=== PATIENT | male | born 1980 | race Caucasian/White ===

== ENCOUNTER 2016-11-11 14:33 | Emergency (ER) | payer OTHER, MEDICAID ==
[2016-11-11] MEDS ORDERED: ACETAMINOPHEN 325 MG TABLET PO ONE (14:57)
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
[2016-11-11 17:01] VITALS: BP 135/88
== END 2016-11-11 17:02 | disposition home or self-care (01) ==
LOC: ER 14:33
DX: S16.1XXA Strain of muscle, fascia and tendon at neck level, initial encounter (principal); M54.2 Cervicalgia; V49.50XA Passenger injured in collision with unspecified motor vehicles in traffic accident, initial encounter; F17.210 Nicotine dependence, cigarettes, uncomplicated
CPT/HCPCS: 72040; 99283

== ENCOUNTER 2016-11-30 01:50 | Emergency (ER) | payer MEDICAID, OTHER ==
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
[2016-11-30 07:58] VITALS: BP 126/79
== END 2016-11-30 08:00 | disposition home or self-care (01) ==
LOC: ER 01:50
DX: L01.00 Impetigo, unspecified (principal); R21 Rash and other nonspecific skin eruption
CPT/HCPCS: 99281

== ENCOUNTER 2017-01-21 17:20 | Emergency (ER) | payer MEDICAID ==
[2017-01-21] MEDS ORDERED: FAMOTIDINE 20 MG TABLET PO ONE (19:25)
[2017-01-21] MEDS ORDERED: PREDNISONE 20 MG TABLET PO ONE (19:25)
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
[2017-01-21 20:13] VITALS: BP 123/77
== END 2017-01-21 20:13 ==
LOC: ER 17:20
DX: R21 Rash and other nonspecific skin eruption (principal); M79.601 Pain in right arm; F17.210 Nicotine dependence, cigarettes, uncomplicated
CPT/HCPCS: 99282; J3490; J7512

== ENCOUNTER 2017-01-27 09:27 | Emergency (ER) | payer MEDICAID ==
[2017-01-27 09:37] VITALS: BP 141/87
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
== END 2017-01-27 10:09 | disposition home or self-care (01) ==
LOC: ER 09:27
DX: L23.7 Allergic contact dermatitis due to plants, except food (principal); T38.0X6A Underdosing of glucocorticoids and synthetic analogues, initial encounter; Z91.120 Patient's intentional underdosing of medication regimen due to financial hardship; Z91.14 Patient's other noncompliance with medication regimen; F17.210 Nicotine dependence, cigarettes, uncomplicated; Z71.6 Tobacco abuse counseling
CPT/HCPCS: 99282

== ENCOUNTER 2017-03-16 19:44 | Emergency (ER) | payer MEDICAID ==
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
[2017-03-16] MEDS ORDERED: CEPHALEXIN 500 MG CAPSULE PO ONE (22:15)
[2017-03-16 22:56] VITALS: BP 117/72
== END 2017-03-16 22:55 | disposition home or self-care (01) ==
LOC: ER 19:44
DX: S80.862A Insect bite (nonvenomous), left lower leg, initial encounter (principal); S80.861A Insect bite (nonvenomous), right lower leg, initial encounter; L08.9 Local infection of the skin and subcutaneous tissue, unspecified; W57.XXXA Bitten or stung by nonvenomous insect and other nonvenomous arthropods, initial encounter
CPT/HCPCS: 99282

== ENCOUNTER 2017-04-04 16:58 | Emergency (ER) | payer MEDICAID ==
[2017-04-04 17:02] VITALS: BP 142/81
[2017-04-04] MEDS ORDERED: CLINDAMYCIN HCL 150 MG CAPSULE PO ONE (17:50)
[2017-04-04] MEDS ORDERED: PREDNISONE 20 MG TABLET PO ONE (17:50)
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
== END 2017-04-04 18:24 | disposition home or self-care (01) ==
LOC: ER 16:58
DX: L03.115 Cellulitis of right lower limb (principal); R21 Rash and other nonspecific skin eruption; R03.0 Elevated blood-pressure reading, without diagnosis of hypertension; F17.200 Nicotine dependence, unspecified, uncomplicated
CPT/HCPCS: 99282; J3490; J7512

== ENCOUNTER 2017-05-18 14:35 | Emergency (ER) | payer MEDICAID ==
[2017-05-18 14:39] VITALS: BP 138/78
[2017-05-18] MEDS ORDERED: DEXAMETHASONE SOD PHOS INJ 10 MG/1 ML VIAL IM ONE (15:30)
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
== END 2017-05-18 16:01 | disposition home or self-care (01) ==
LOC: ER 14:35
DX: L25.9 Unspecified contact dermatitis, unspecified cause (principal)
CPT/HCPCS: 99283; 96372; J1100

== ENCOUNTER 2017-06-25 12:41 | Emergency (ER) | payer MEDICAID ==
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
[2017-06-25] MEDS ORDERED: IBUPROFEN 800 MG TABLET PO ONE (13:57)
[2017-06-25 14:12] VITALS: BP 138/70
== END 2017-06-25 14:39 | disposition home or self-care (01) ==
LOC: ER 12:41
DX: S61.212A Laceration without foreign body of right middle finger without damage to nail, initial encounter (principal); W45.8XXA Other foreign body or object entering through skin, initial encounter; F17.200 Nicotine dependence, unspecified, uncomplicated
CPT/HCPCS: 99282; J3490

== ENCOUNTER 2018-04-15 20:45 | Emergency (ER) | payer MEDICAID ==
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
[2018-04-15] MEDS ORDERED: CEPHALEXIN 500 MG CAPSULE PO ONE (23:18)
[2018-04-15] MEDS ORDERED: FAMOTIDINE 20 MG TABLET PO ONE (23:19)
[2018-04-15] MEDS ORDERED: PREDNISONE 20 MG TABLET PO ONE (23:19)
[2018-04-15] MEDS ORDERED: CLINDAMYCIN HCL 150 MG CAPSULE PO ONE (23:23)
[2018-04-15 23:29] VITALS: BP 137/86
== END 2018-04-15 23:34 | disposition home or self-care (01) ==
LOC: ER 20:45
DX: L03.221 Cellulitis of neck (principal); T78.40XA Allergy, unspecified, initial encounter; X58.XXXA Exposure to other specified factors, initial encounter; R21 Rash and other nonspecific skin eruption; L29.9 Pruritus, unspecified; Z87.891 Personal history of nicotine dependence; Z86.14 Personal history of Methicillin resistant Staphylococcus aureus infection
CPT/HCPCS: 99282; J3490 ×2; J7512

== ENCOUNTER 2018-04-26 20:27 | Emergency (ER) | payer MEDICAID ==
[2018-04-26] MEDS ORDERED: NYSTATIN/TRIAMCIN CREAM 15 GM TP ONE (23:25)
--- NOTE | 2018-04-26 23:28 | ER Document Report ---
ED Skin Rash/Insect Bite/Abscs - General Chief Complaint: Rash Stated Complaint: POSSIBLE ALLERGIC REACTION Time Seen by Provider: 04/26/18 22:43 Mode of Arrival: Ambulatory Information source: Patient Notes: 37-year-old male presents to ED for complaint of rash to his left forearm and lower abdomen. He states his been there for at least a week maybe longer. Patient has psoriasis to both arms and both legs. He states he has a primary care doctor at [facility]. He states this rash feels different than normal. States he has some prednisone left and he took it and with no relief from the rash. Patient is alert and oriented respirations regular and unlabored speaking in full sentences. TRAVEL OUTSIDE OF THE [place] IN LAST 30 DAYS: No - HPI Patient complains to provider of: Skin rash/lesion Onset: Other - He states at least a week Onset/Duration: Persistent Quality of pain: No pain Severity: None Pain Level: Denies Skin Character: Rash Quality of rash: Itchy Identify cause: No Exacerbated by: Denies Relieved by: Denies Similar symptoms previously: Yes Recently seen / treated by doctor: No - Related Data Allergies/Adverse Reactions: No Known Allergies Allergy (Verified 04/26/18 20:28) Past Medical History - General Information source: Patient - Social History Smoking Status: Current Some Day Smoker Frequency of alcohol use: None Drug Abuse: None Lives with: Spouse/Significant other Family History: Hypertension, Thyroid Disfunction Patient has suicidal ideation: No Patient has homicidal ideation: No - Past Medical History Cardiac Medical History: Reports: Hx Hypercholesterolemia Pulmonary Medical History: Reports: Hx Bronchitis EENT Medical History: Reports: None Neurological Medical History: Reports: None Endocrine Medical History: Reports: None Renal/ Medical History: Reports: None Malignancy Medical History: Reports None GI Medical History: Reports: None Musculoskeletal Medical History: Reports Hx Musculoskeletal Trauma Skin Medical History: Reports Hx Psoriasis Psychiatric Medical History: Reports: None Traumatic Medical History: Reports: None Infectious Medical History: Reports: None Past Surgical History: Reports: Hx Oral Surgery - Multiple dental surgery, Hx Orthopedic Surgery - left knee, Other - Reattachment of the end of the finger as a child - Immunizations Immunizations up to date: Yes Hx Diphtheria, Pertussis, Tetanus Vaccination: Yes - 2013 or 1014 per patient. Review of Systems - Review of Systems Constitutional: No symptoms reported EENT: No symptoms reported Cardiovascular: No symptoms reported Respiratory: No symptoms reported Gastrointestinal: No symptoms reported Genitourinary: No symptoms reported Male Genitourinary: No symptoms reported Musculoskeletal: No symptoms reported Skin: Rash Hematologic/Lymphatic: No symptoms reported Neurological/Psychological: No symptoms reported -: Yes All other systems reviewed and negative Physical Exam - Vital signs Vitals: Temp Pulse Resp BP Pulse Ox 98.7 F 94 20 127/78 H 97 04/26/18 20:33 04/26/18 20:33 04/26/18 20:33 04/26/18 20:33 04/26/18 20:33 Interpretation: Normal - General General appearance: Appears well, Alert - HEENT Head: Normocephalic, Atraumatic Eyes: Normal Pupils: PERRL - Respiratory Respiratory status: No respiratory distress Chest status: Nontender Breath sounds: Normal Chest palpation: Normal - Cardiovascular Rhythm: Regular Heart sounds: Normal auscultation Murmur: No - Abdominal Inspection: Normal, Other - Rash and redness to the lower abdomen and groin Distension: No distension Bowel sounds: Normal Tenderness: Nontender Organomegaly: No organomegaly - Back Back: Normal, Nontender - Extremities General upper extremity: Normal inspection, Nontender, Normal color, Normal ROM , Normal temperature General lower extremity: Normal inspection, Nontender, Normal color, Normal ROM , Normal temperature, Normal weight bearing. No: Zari's sign - Neurological Neuro grossly intact: Yes Cognition: Normal Orientation: AAOx4 Fadia Coma Scale Eye Opening: Spontaneous Fadia Coma Scale Verbal: Oriented Fadia Coma Scale Motor: Obeys Commands Fadia Coma Scale Total: 15 Speech: Normal Motor strength normal: LUE, RUE, LLE, RLE Sensory: Normal - Psychological Associated symptoms: Normal affect, Normal mood - Skin Skin Temperature: Warm Skin Moisture: Dry Skin Color: Normal Skin irregularity: Rash Location of irregularity: Other - Patient has psoriasis to multiple areas. He has a rash that he states is only been there for about a week to the left arm and bilateral lower abdomen and groin areas Character of irregularity: Maculopapular, Erythematous Irregularity with: Tenderness, Thickening, Inflammation Course - Re-evaluation Re-evalutation: 04/27/18 01:42 Patient was given Mycolog cream for the inflamed areas to his bilateral lower abdomen and groin. He was given prescription for Vistaril for the rash to his arm his psoriasis and his rash to his abdomen. Patient was [facility] Patient was able to verbalize understanding and agreement with treatment plan. - Vital Signs Vital signs: Temp Pulse Resp BP Pulse Ox 98.7 F 94 14 136/78 H 99 04/26/18 20:33 04/26/18 20:33 04/26/18 23:38 04/26/18 23:38 04/26/18 23:38 Discharge - Discharge Clinical Impression: Rash and nonspecific skin eruption Condition: Stable Disposition: HOME, SELF-CARE Additional Instructions: ACUTE ALLERGIC REACTION: Your symptoms are due to an allergic reaction. Allergy can cause hives, swelling of the hands, feet, and face, hoarseness, and difficulty swallowing or breathing. It may be due to exposure to medication, animal dander, foods, infection, or insect bites. Medication is a common cause, even when prior use of this same medication caused no problems. Acute treatment may include adrenalin and antihistamines. Usually, the specific allergic agent can't be identified unless repeated episodes occur. Home treatment includes the following: (1) Stop any suspicious medications. This will be discussed with you. (2) Oral antihistamines for the next four to five days. Example, diphenhydramine (Benadryl) every four hours. (3) You may also use cimetidine (Tagamet), ranitidine (Zantac), or famotidine ( Pepcid) every four hours if diphenhydramine is not controlling itching and hives. (4) Avoid aspirin until the hives completely disappear. (5) Avoid hot baths or showers until the hives are completely gone. Call the doctor if faintness, difficulty swallowing, tightness in the chest , or wheezing occurs. ACID-SUPPRESSING MEDICATION: You have a prescription for medicine which reduces the stomach's secretion of acid. Examples include Zantac, Tagament, and Pepcid. These drugs are often used to allow healing of ulcers or esophagitis. They may be needed to prevent recurrence of ulcers in some patients, or to prevent damage from acid reflux in the esophagus. Take all medication as prescribed, even after the pain is gone. Regular antacids may be added as needed if you have symptoms while taking this medicine. These medications sometimes are prescribed for allergic reactions because they have anti-histaminic effects and relieve the rash and itching of the reaction. There are usually no side effects from this medication. But, in rare cases and particularly in the elderly, serious problems can occur. Contact your doctor if there is fever, rash, hallucinations, confusion, or unusual bruising. Contact your doctor at once if you develop lightheadedness, black or bloody stool, or bloody vomitus. ANTIHISTAMINES: An antihistamine has been given and/or prescribed to control your symptoms. Antihistamines are used for many reasons, including itching, watering eyes, runny nose, allergic swelling, hives, and insect stings. Antihistamines may cause drowsiness, especially with the first dose. Do not operate machinery or drive while under the effects of the medication. Other common side effects include dry mouth and eyes. In older persons, antihistamines can occasionally cause urinary retention, constipation, and trouble focusing the eyes. Do not combine the medication with alcohol, or with any other medication without talking to your doctor. USE OF DIPHENHYDRAMINE: The use of diphenhydramine (Benadryl) has been recommended to control allergic symptoms. The 25 mg strength is available over- the-counter, as well as the elixir. This antihistamine is used for many symptoms. It's useful for itching, watering eyes and nose, allergic swelling, hives, and insect stings. The medication can be repeated four times daily. Age Elixir (12.5 mg/tsp) 25 mg pill 2-3 yr 1/2 tsp 4-8 yr 1 tsp 9-14 yr 2 tsp one tab adult 1-2 tabs Antihistamines may cause drowsiness, especially with the first dose. Do not operate machinery or drive while under the effects of the medication. Do not combine the medication with alcohol, or with any other medication without talking to your doctor. Skin Fungus You have a fungal infection of the skin. This is sometimes called "ringworm" when it forms a ring. It's called "jock itch" when it occurs in the groin area. The infection results from exposure to another person or an animal carrying the fungus. The fungus prefers areas which are moist and warm. The infection is usually treated with antifungal cream. This is applied two or three times daily. Healing may take two or three weeks. Occasionally, oral medication is necessary, for example, when the infection involves the scalp or nails. Fingernail or toenail infections are very difficult to eradicate, often requiring many weeks of treatment. Return for re-examination if your symptoms change significantly -- for example, if you develop fever or chills, red streaks, increasing tenderness, swelling, or blisters at the infection site. FOLLOW-UP CARE: If you have been referred to a physician for follow-up care, call the physician s office for an appointment as you were instructed or within the next two days. If you experience worsening or a significant change in your symptoms, notify the physician immediately or return to the Emergency Department at any time for re-evaluation. Prescriptions: Hydroxyzine Pamoate [Vistaril 50 mg Capsule] 50 mg PO DAILY #20 capsule Forms: Elevated Blood Pressure
[2018-04-26 23:39] VITALS: BP 136/78
== END 2018-04-26 23:38 | disposition home or self-care (01) ==
LOC: ER 20:27
DX: F17.200 Nicotine dependence, unspecified, uncomplicated (principal); E78.00 Pure hypercholesterolemia, unspecified
CPT/HCPCS: 99282; J3490

== ENCOUNTER 2018-07-25 19:57 | Emergency (ER) | payer MEDICAID, OTHER ==
--- NOTE | 2018-07-25 21:41 | ER Document Report ---
HPI - HPI Patient complains to provider of: Cold symptoms Time Seen by Provider: 07/25/18 21:14 Onset: Last week Onset/Duration: Persistent Quality of pain: Achy Pain Level: Denies Context: Patient presents complaining of cough and chills for the past week. Patient states that he developed a cough for the past 4 days that has been productive with green sputum. Patient denies any vomiting or diarrhea or fever. Patient is here with girlfriend who has similar upper respiratory symptoms. Associated Symptoms: Body/muscle aches, Chills, Productive cough. denies: Chest pain, Fever, Headache, Vomiting Exacerbated by: Denies Relieved by: Denies Similar symptoms previously: Yes Recently seen / treated by doctor: No - ROS ROS below otherwise negative: Yes Systems Reviewed and Negative: Yes All other systems reviewed and negative - CONSTITUTIONAL Constitutional: REPORTS: Chills - EENT EENT: REPORTS: Congestion - NEURO Neurology: DENIES: Headache - CARDIOVASCULAR Cardiovascular: DENIES: Chest pain - RESPIRATORY Respiratory: REPORTS: Coughing - GASTROINTESTINAL Gastrointestinal: DENIES: Abdominal Pain, Nausea, Patient vomiting, Diarrhea - MUSCULOSKELETAL Musculoskeletal: DENIES: Neck Pain - DERM Skin Color: Normal Skin Problems: None Past Medical History - General Information source: Patient - Social History Smoking Status: Never Smoker Chew tobacco use (# tins/day): No Frequency of alcohol use: None Drug Abuse: None Family History: Hypertension, Thyroid Disfunction Patient has suicidal ideation: No Patient has homicidal ideation: No - Past Medical History Cardiac Medical History: Reports: Hx Hypercholesterolemia Pulmonary Medical History: Reports: Hx Bronchitis Renal/ Medical History: Denies: Hx Peritoneal Dialysis GI Medical History: Musculoskeletal Medical History: Reports Hx Musculoskeletal Trauma Skin Medical History: Reports Hx Psoriasis Past Surgical History: Reports: Hx Oral Surgery - Multiple dental surgery, Hx Orthopedic Surgery - left knee, Other - Reattachment of the end of the finger as a child - Immunizations Immunizations up to date: Yes Hx Diphtheria, Pertussis, Tetanus Vaccination: Yes - 2013 or 1014 per patient. Vertical Provider Document - CONSTITUTIONAL Agree With Documented VS: Yes Exam Limitations: No Limitations General Appearance: WD/WN, No Apparent Distress - INFECTION CONTROL TRAVEL OUTSIDE OF THE [place] IN LAST 30 DAYS: No - HEENT HEENT: Atraumatic, Normal ENT Exam, Normocephalic. negative: Pharyngeal Erythema, Tympanic Membrane Red, Tympanic Membrane Bulging - NECK Neck: Normal Inspection, Supple. negative: Lymphadenopathy-Left, Lymphadenopathy-Right - RESPIRATORY Respiratory: Breath Sounds Normal, No Respiratory Distress, Chest Non-Tender. negative: Wheezing - CARDIOVASCULAR Cardiovascular: Regular Rate, Regular Rhythm, No Murmur - BACK Back: Normal Inspection - MUSCULOSKELETAL/EXTREMETIES Musculoskeletal/Extremeties: MADIEGO, FROM - NEURO Level of Consciousness: Awake, Alert, Appropriate Motor/Sensory: No Motor Deficit - DERM Integumentary: Warm, Dry, No Rash Course - Re-evaluation Re-evalutation: 07/25/18 22:44 Respirations even and unlabored, patient nontoxic in appearance. Patient presents with significant other who has similar upper respiratory symptoms. No concern for pneumonia at this time. - Vital Signs Vital signs: Temp Pulse Resp BP Pulse Ox 98.7 F 92 16 139/77 H 96 07/25/18 19:58 07/25/18 19:58 07/25/18 19:58 07/25/18 19:58 07/25/18 19:58 - Diagnostic Test Radiology reviewed: Reports reviewed Discharge - Discharge Clinical Impression: Upper respiratory infection Qualifiers: URI type: unspecified URI Qualified Code(s): J06.9 - Acute upper respiratory infection, unspecified Condition: Stable Disposition: HOME, SELF-CARE Instructions: Acetaminophen, Upper Respiratory Illness ([facility]) Additional Instructions: Return immediately for any new or worsening symptoms Followup with your primary care provider, call tomorrow to make a followup appointment Prescriptions: Benzonatate [Tessalon Perle 100 mg Capsule] 100 mg PO Q8HP PRN #20 cap PRN Reason: Naproxen [Naprosyn 250 Nmg Tablet] 1 tab PO BID #14 tablet Referrals: SUSANNE NOLAN PA-C [[facility]] - Follow up as needed
--- NOTE | 2018-07-25 22:17 | RADIOLOGY REPORT (SQ) ---
EXAM DESCRIPTION: XR CHEST 2 VIEWS COMPLETED DATE/TME: 07/25/2018 21:31 CLINICAL HISTORY: 38 years, Male, cough Findings: The heart is not enlarged. Lungs are clear. No pleural effusion. No pneumothorax. IMPRESSION: No acute disease.
[2018-07-25 22:59] VITALS: BP 140/74
== END 2018-07-25 23:00 | disposition home or self-care (01) ==
LOC: ER 19:57
DX: J06.9 Acute upper respiratory infection, unspecified (principal); R05 Cough; R68.83 Chills (without fever); M79.10 Myalgia, unspecified site
CPT/HCPCS: 71046; 99283

== ENCOUNTER 2018-07-31 15:04 | Emergency (ER) | payer MEDICAID ==
--- NOTE | 2018-07-31 15:26 | ER Document Report ---
HPI - HPI Time Seen by Provider: 07/31/18 15:25 Pain Level: 4 Notes: 30-year-old male who presents to the ED with a history of smoking recently quit he states 2 weeks ago with complaints of productive cough, wheezing that has been occurring for the last 2 weeks. Was seen in the emergency room on July 25, 2018, was given a chest x-ray which was negative for any acute findings per radiology, was discharged home with Tessalon Perles and naproxen. Patient states he was unable to take it due to his insurance not covering the Tessalon Perles. Has been trying [id number] Mucinex, Sudafed without relief. Denies any history of asthma or seasonal allergies. Worse with time, nothing makes better. Denies any pedal edema bilaterally. Denies fevers, chills, chest pain,palpitations, shortness of breath, dyspnea, nausea, vomiting, diarrhea, abdominal pain, hematuria,blurred vision, double vision, loss of vision, speech changes, LH, dizziness, syncope, headaches, wheezing, ST , neck pain, weakness, bowel or bladder dysfunction, saddle anesthesia, numbness or tingling in bilateral upper or lower extremities equally, muscle paralysis, weakness in bilateral upper or lower extremities equally or rash. - REPRODUCTIVE Reproductive: DENIES: : Past Medical History - General Information source: Patient - Social History Smoking Status: Former Smoker - quite 2 weeks ago, [id number] years Family History: Reviewed & Not Pertinent, Hypertension, Thyroid Disfunction - Past Medical History Cardiac Medical History: Reports: Hx Hypercholesterolemia Pulmonary Medical History: Reports: Hx Bronchitis Renal/ Medical History: Denies: Hx Peritoneal Dialysis GI Medical History: Musculoskeletal Medical History: Reports Hx Musculoskeletal Trauma Skin Medical History: Reports Hx Psoriasis Past Surgical History: Reports: Hx Oral Surgery - Multiple dental surgery, Hx Orthopedic Surgery - left knee, Other - Reattachment of the end of the finger as a child - Immunizations Immunizations up to date: Yes Hx Diphtheria, Pertussis, Tetanus Vaccination: Yes - 2013 or 1014 per patient. Vertical Provider Document - CONSTITUTIONAL Notes: Dictation was performed using [employer] voice recognition software PHYSICAL EXAMINATION: GENERAL: Well-appearing, well-nourished and in no acute distress. HEAD: Atraumatic, normocephalic. EYES: Pupils equal round and reactive to light, extraocular movements intact, sclera anicteric, conjunctiva are normal. ENT:TM intact with effusion, no erythema bilaterally. Nares patent, oropharynx clear without exudates. Moist mucous membranes. NECK: Normal range of motion, supple without lymphadenopathy LUNGS: Coarse breath sounds in bilateral upper extremities breathing treatment given, and reevaluation, breath sounds clear in all lobes on auscultation. No wheezes rales or rhonchi noted. HEART: Regular rate and rhythm without murmurs ABDOMEN: Soft, nontender, nondistended abdomen. No guarding, no rebound. No masses appreciated. Musculoskeletal: Normal range of motion, no pitting or edema. No cyanosis. NEUROLOGICAL: Cranial nerves grossly intact. Normal speech, normal gait. Normal sensory, motor exams PSYCH: Normal mood, normal affect. SKIN: Warm, Dry, normal turgor, no rashes or lesions noted. - INFECTION CONTROL TRAVEL OUTSIDE OF THE [place] IN LAST 30 DAYS: No Course - Re-evaluation Re-evalutation: 07/31/18 16:05 Patient presents with a clinical history and exam most consistent with an acute bronchitis. Patient is overall well in appearance without tachypnea, hypoxemia , tachycardia, or difficulty with ambulation. Breath sounds are clear bilaterally after breathing treatment, previously he had diminished breath sounds. Patient has had symptoms for almost 2 weeks, recently quit smoking approximately 2 weeks ago per his report.. No fever. Patient does have additional signs of upper respiratory infection including nasal congestion, sore throat, and sinus pressure. No indication for labs or imaging. At this time will discharge with return precautions and follow-up recommendations. I have reevaluated this patient multiple times and no significant life threatening changes, no signs of toxicity, sepsis or peritonitis are noted. The patient and I have discussed the diagnosis and risks, and we agree with discharging home and close follow-up. We also discussed returning to the Emergency Department immediately if new or worsening symptoms occur with the understanding that symptoms and presentations can change. At this time will discharge with return precautions and follow-up recommendations. Verbal discharge instructions given a the bedside and opportunity for questions given. We have discussed the symptoms which are most concerning (e.g., fever, rashes, SOB, CP, changing or worsening pain) that necessitate immediate return. Medication warnings reviewed. All questions and concerns answered by this provider. Patient is in agreement with this plan and has verbalized understanding of return precautions and the need for primary care follow-up in the next 24-72 hours. Patient verbalized understanding of plan of care and agree with plan of care. - Vital Signs Vital signs: Temp Pulse Resp BP Pulse Ox 98.2 F 92 18 136/73 H 94 07/31/18 15:18 07/31/18 15:18 07/31/18 15:18 07/31/18 15:18 07/31/18 15:18 Discharge - Discharge Clinical Impression: Acute bacterial bronchitis Condition: Stable Disposition: HOME, SELF-CARE Instructions: Bronchitis ([facility]), Cough Suppressant & Expectorant Medications Additional Instructions: Bronchitis You have acute bronchitis. This disease is an infection or inflammation of the air passageways in your lungs. Symptoms usually include cough, low grade fever, shortness of breath, and wheezing. The cough usually persists for a couple of weeks. Most cases of bronchitis get better without antibiotics. We prescribe antibiotics when we believe bacteria are damaging your airways, or if there's high risk the bronchitis will worsen into pneumonia. Increase your fluid intake. A cool mist humidifier may make your lungs more comfortable. An expectorant (cough medicine that loosens phlegm) can help. If you smoke, STOP!!! Recovery from bronchitis can be somewhat slow, but you should see improvement within a day or two. Repeated episodes of bronchitis may result in lung damage -- for example, chronic bronchitis, recurrent pneumonias, or emphysema. Call the doctor if you develop increasing fever, shortness of breath, chest pain, bloody sputum, or otherwise worsen. If you have not improved at all after several days, contact the physician. Return immediately for any new or worsening symptoms. Follow up with primary care provider, call tomorrow to make followup appointment. Prescriptions: Albuterol Sulfate [Proair Respiclick] 90 mcg IH Q4HP PRN #1 [email or web address] PRN Reason: Azithromycin [Zithromax] 250 mg PO DAILY 5 Days #6 tablet Prednisone [Deltasone 20 mg Tablet] 2 tab PO DAILY 5 Days #10 tablet Referrals: ADELITA GARCIA MD [ACTIVE STAFF] - Follow up tomorrow
[2018-07-31] MEDS ORDERED: IPRATROPIUM/ALBUTEROL 0.5-2.5 MG/3 ML AMPUL NEB ONE (15:38)
[2018-07-31 16:51] VITALS: BP 132/79
== END 2018-07-31 16:51 | disposition home or self-care (01) ==
LOC: ER 15:04
DX: J20.8 Acute bronchitis due to other specified organisms (principal); B96.89 Other specified bacterial agents as the cause of diseases classified elsewhere; R05 Cough; T48.3X Poisoning by, adverse effect of and underdosing of antitussives; Z91.120 Patient's intentional underdosing of medication regimen due to financial hardship; Z91.14 Patient's other noncompliance with medication regimen; Z87.891 Personal history of nicotine dependence
CPT/HCPCS: 94640; 99283; J7620